=== PATIENT | male | born 1990 | race Caucasian/White ===

== ENCOUNTER 2018-01-28 17:01 | Emergency (ER) | payer MEDICAID, OTHER ==
[~2018-01-28] VITALS: Ht 154.9 cm; Wt 99.0 kg
[~2018-01-28 17:01] MED LIST: PRED10TA PO
[2018-01-28] MEDS ORDERED: IBUP-1986 PO (18:30)
[2018-01-28 18:49] VITALS: BP 145/109
== END 2018-01-28 18:52 | disposition home or self-care (01) ==
LOC: ER 17:01
DX: M25.571 Pain in right ankle and joints of right foot (principal); F12.10 Cannabis abuse, uncomplicated; Z79.899 Other long term (current) drug therapy; Z56.0 Unemployment, unspecified; X50.1XXA Overexertion from prolonged static or awkward postures, initial encounter; Y93.89 Activity, other specified; Y92.89 Other specified places as the place of occurrence of the external cause; Y99.8 Other external cause status
CPT/HCPCS: 73610; 99284

== ENCOUNTER 2018-08-29 14:20 | Emergency (ER) | payer OTHER ==
[~2018-08-29] VITALS: Ht 177.8 cm; Wt 100.0 kg
[~2018-08-29 14:20] MED LIST changes: +IBUP-1986 PO
[2018-08-29 14:31] VITALS: BP 155/90
== END 2018-08-29 17:09 | disposition left against medical advice (07) ==
LOC: ER 14:21
DX: S61.011A Laceration without foreign body of right thumb without damage to nail, initial encounter (principal); Z53.21 Procedure and treatment not carried out due to patient leaving prior to being seen by health care provider; W45.8XXA Other foreign body or object entering through skin, initial encounter; Y93.89 Activity, other specified; Y92.89 Other specified places as the place of occurrence of the external cause; Y99.8 Other external cause status

== ENCOUNTER 2018-09-03 08:28 | Emergency (ER) | payer OTHER ==
[~2018-09-03] VITALS: Ht 177.8 cm; Wt 97.0 kg
[2018-09-03 08:30] VITALS: BP 147/85
[2018-09-03] MEDS ORDERED: CEPH-572 PO (08:47)
== END 2018-09-03 09:09 | disposition home or self-care (01) ==
LOC: ER 08:29
DX: S61.011D Laceration without foreign body of right thumb without damage to nail, subsequent encounter (principal); Z79.899 Other long term (current) drug therapy; W45.8XXD Other foreign body or object entering through skin, subsequent encounter
CPT/HCPCS: 99283

== ENCOUNTER 2019-03-27 17:08 | Emergency (ER) | payer MEDICAID ==
[~2019-03-27] VITALS: Ht 177.8 cm; Wt 98.0 kg
[~2019-03-27 17:08] MED LIST changes: +PENI500T2 PO
[2019-03-27 17:58] VITALS: BP 146/100
== END 2019-03-27 18:19 | disposition home or self-care (01) ==
LOC: ER 17:09
DX: R26.89 Other abnormalities of gait and mobility (principal); G20 Parkinson's disease; F32.9 Major depressive disorder, single episode, unspecified; F12.90 Cannabis use, unspecified, uncomplicated; Z79.899 Other long term (current) drug therapy
CPT/HCPCS: 99281

== ENCOUNTER 2019-05-22 09:37 | Emergency (ER) | payer MEDICAID ==
[~2019-05-22] VITALS: Ht 177.8 cm; Wt 92.0 kg
[~2019-05-22 09:37] MED LIST changes: -PENI500T2 PO
[2019-05-22 09:48] VITALS: BP 167/101
== END 2019-05-22 10:57 | disposition home or self-care (01) ==
LOC: ER 09:38
DX: M25.512 Pain in left shoulder (principal); G20 Parkinson's disease; F32.9 Major depressive disorder, single episode, unspecified; F12.90 Cannabis use, unspecified, uncomplicated; Z79.899 Other long term (current) drug therapy
CPT/HCPCS: 73030; 99283

== ENCOUNTER 2020-01-09 14:22 | Emergency (ER) | payer MEDICAID ==
[~2020-01-09] VITALS: Ht 180.3 cm; Wt 88.2 kg
[2020-01-09 14:38] VITALS: BP 146/90
== END 2020-01-09 17:03 | disposition left against medical advice (07) ==
LOC: ER 14:23
DX: T69.8XXA Other specified effects of reduced temperature, initial encounter (principal); Z53.21 Procedure and treatment not carried out due to patient leaving prior to being seen by health care provider

== ENCOUNTER 2020-04-21 19:49 | Emergency (ER) | payer MEDICAID ==
[~2020-04-21] VITALS: Ht 177.8 cm; Wt 90.9 kg
[2020-04-21 20:07] VITALS: BP 142/94
== END 2020-04-21 21:00 | disposition left against medical advice (07) ==
LOC: ER 19:49
DX: K62.5 Hemorrhage of anus and rectum (principal); K62.89 Other specified diseases of anus and rectum; Z53.21 Procedure and treatment not carried out due to patient leaving prior to being seen by health care provider

== ENCOUNTER 2021-05-23 09:17 | Emergency (ER) | payer MEDICAID ==
[~2021-05-23] VITALS: Ht 181.6 cm; Wt 82.6 kg
[2021-05-23 09:25] VITALS: BP 153/104
== END 2021-05-23 10:31 | disposition home or self-care (01) ==
LOC: ER 09:17
DX: H10.9 Unspecified conjunctivitis (principal); G20 Parkinson's disease; F32.9 Major depressive disorder, single episode, unspecified; Z79.899 Other long term (current) drug therapy; F12.10 Cannabis abuse, uncomplicated
CPT/HCPCS: 99283

== ENCOUNTER 2024-01-23 16:46 | Emergency (ER) | payer OTHER, MEDICAID ==
[~2024-01-23] VITALS: Ht 182.9 cm; Wt 97.8 kg
[2024-01-23 17:00] VITALS: BP 135/89; PULSE 91; RESP 16; TEMP 99.1; O2SAT 96
[2024-01-23] MEDS ORDERED: CEPH-585 PO (18:26)
== END 2024-01-23 18:48 | disposition home or self-care (01) ==
LOC: ER 16:47
DX: S50.811A Abrasion of right forearm, initial encounter (principal); F12.90 Cannabis use, unspecified, uncomplicated; Z79.1 Long term (current) use of non-steroidal anti-inflammatories (NSAID); Z79.899 Other long term (current) drug therapy; V98.8XXA Other specified transport accidents, initial encounter; Y93.89 Activity, other specified; Y92.89 Other specified places as the place of occurrence of the external cause; Y99.8 Other external cause status
CPT/HCPCS: 73080; 73090; 73110; 99284; J7030; A6449

== ENCOUNTER 2024-04-13 07:28 | Emergency (ER) | payer MEDICAID ==
[~2024-04-13] VITALS: Ht 182.9 cm; Wt 101.4 kg
[2024-04-13 07:32] VITALS: TEMP 97.1
[2024-04-13 08:09] VITALS: BP 130/74; PULSE 72; RESP 16; O2SAT 98
[2024-04-13] MEDS: bacitracin 15gm ointment TP ONE (08:09)
== END 2024-04-13 08:10 | disposition home or self-care (01) ==
LOC: ER 07:29
DX: S92.512A Displaced fracture of proximal phalanx of left lesser toe(s), initial encounter for closed fracture (principal); F32.A Depression, unspecified; F12.90 Cannabis use, unspecified, uncomplicated; Z79.1 Long term (current) use of non-steroidal anti-inflammatories (NSAID); Z79.899 Other long term (current) drug therapy; W22.8XXA Striking against or struck by other objects, initial encounter; Y93.89 Activity, other specified; Y92.89 Other specified places as the place of occurrence of the external cause; Y99.8 Other external cause status
CPT/HCPCS: 73660; 99283

== ENCOUNTER 2024-09-09 03:32 | Emergency (ER) | payer MEDICAID | END 2024-09-09 03:45 | disposition left against medical advice (07) | LOC: ER 03:33 | DX: R05.9 Cough, unspecified (principal); R06.2 Wheezing; Z53.21 Procedure and treatment not carried out due to patient leaving prior to being seen by health care provider ==

== ENCOUNTER 2024-09-09 04:05 | Emergency (ER) | payer MEDICAID ==
[~2024-09-09] VITALS: Ht 182.9 cm; Wt 102.2 kg
[2024-09-09 04:11] VITALS: TEMP 98.7
[2024-09-09] MEDS ORDERED: dexamethasone 4mg tablet PO ONE (04:30)
[2024-09-09] MEDS: dexamethasone sod phosphate 10mg/ml inj PO ONE (04:35)
[2024-09-09] MEDS: ketorolac trometh 30MG/ML vial 30 MG/ML VIAL IM ONE (04:38)
[2024-09-09 05:05] LABS: STREP A SCREEN NEGATIVE (Neg)
[2024-09-09] MEDS: HYDROcodone/acetaminophen 5mg/325mg tablet PO ONE (05:05)
[2024-09-09 05:39] VITALS: BP 145/95; PULSE 91; RESP 18; O2SAT 98
== END 2024-09-09 05:45 | disposition home or self-care (01) ==
LOC: ER 04:06
DX: J02.9 Acute pharyngitis, unspecified (principal); B34.9 Viral infection, unspecified; G20.A1 Parkinson's disease without dyskinesia, without mention of fluctuations; F32.A Depression, unspecified; F12.90 Cannabis use, unspecified, uncomplicated; Z20.822 Contact with and (suspected) exposure to COVID-19
CPT/HCPCS: 36415; 87081; 87502; 87503; 87811; 87880; 96372; 99283; J1100; J1885

== ENCOUNTER 2025-07-13 08:00 | Outpatient (CLI) | payer MEDICAID ==
[2025-07-13] VITALS (21 sets, daily range): BP systolic 109–143; BP diastolic 46–95; PULSE 68–109
--- NOTE | 2025-07-14 18:04 | CARDIOLOGY REPORT ---
DATE OF SERVICE: 07/13/2025 DICTATING PHYSICIAN: JENNA Garza MD PRIMARY PROVIDER: MARILEE Medina TENNIS NET MAKER: JENNA Garza MD INDICATION: The patient is a 34-year-old female with episodes of dizziness. This study was done to evaluate for cardiodepressor-type of syncope. In supine resting condition, heart rate was 68 per minute, blood pressure 125/78. The patient was asymptomatic. After 40 minutes of 70-degree tilt, the patient's heart rate was 74 per minute with a blood pressure of 124/74. In supine recovery condition, the patient's heart rate was 84 per minute and blood pressure 125/92. The patient did complain of fatigue in the very beginning and towards the end. IMPRESSION: A 34-year-old female with cardiac tilt-table findings negative for cardiodepressor-type syncope. Recommend clinical correlation. JENNA Garza MD TID: [id number] RECEIPT: [id number] VIKRAM/KATELIN cc: OVIDIO KRISHNAMURTHY
== END 2025-07-13 23:59 | disposition home or self-care (01) ==
LOC: CARD DIAG 08:00
PROVIDERS: ATTEND Physician Assistant
DX: R00.2 Palpitations (principal); R42 Dizziness and giddiness
CPT/HCPCS: 93660